=== PATIENT | male | born 1950 | race Caucasian/White ===

== ENCOUNTER 2018-08-14 02:04 | Outpatient (CLI) | payer MEDICARE, BC ==
--- NOTE | 2018-08-14 13:12 | RAD ---
EXAM: Single view of the chest HISTORY: Preoperative radiograph COMPARISON: None FINDINGS: Single view of the chest shows a normal sized cardiomediastinal silhouette. There is no wally dence of consolidation, mass, or pleural effusion. The bones are unremarkable. IMPRESSION: No evidence of acute cardiopulmonary disease
[2018-08-14 13:31] LABS: #Eosinphils 0.1 thou/uL (0.0-0.7); #Lymphocytes 2.7 thou/uL (1.20-3.40); #Monocytes 0.5 thou/uL (0.11-0.59); #Neutrophils 2.6 thou/uL (1.40-6.50); %Basophils 0.7 % (0.0-1.0); %Eosinophils 1.7 % (0.0-10.0); %Lymphocytes 45.6 % (21.0-51.0); %Monocytes 8.2 % (0.0-10.0); %Neutrophils 43.8 % (42.0-75.0); Mean Corpuscular HGB CONC 33.9 g/dL (32.0-36.0); Mean Corpuscular Volume 94.5 fL (78.0-98.0); Platelet Count 216 thou/uL (130-400); Red Blood Cell (RBC) Count 4.37 mill/uL (4.70-6.10)
[2018-08-14 13:51] LABS: ALT (SGPT) 27 U/L (8-55); AST (SGOT) 19 U/L (5-34); Albumin 4.5 g/dL (3.4-4.8); Alkaline Phosphatase 62 U/L (40-150); Anion Gap 12 mmol/L (10-20); BUN (Urea Nitrogen) 15 mg/dL (8.4-25.7); Bilirubin, Total 0.7 mg/dL (0.2-1.2); Calc. Creatinine Clearance 0 mL/min (70-130); Calcium 9.8 mg/dL (7.8-10.44); Carbon Dioxide 26 mmol/L (23-31); Chloride 105 mmol/L (98-107); Estimated GFR-MDRD 67; Globulin 2.2 g/dL (2.4-3.5); Glucose 106 mg/dL (80-115); Potassium 4.5 mmol/L (3.5-5.1); Protein, Total 6.7 g/dL (5.8-8.1); Sodium 138 mmol/L (136-145)
--- NOTE | 2018-08-14 17:37 | EKG ---
Test Reason : Blood Pressure : / mmHG Vent. Rate : 054 BPM Atrial Rate : 054 BPM P-R Int : 148 ms QRS Dur : 090 ms QT Int : 440 ms P-R-T Axes : 047 023 015 degrees QTc Int : 417 ms Sinus bradycardia Otherwise normal ECG No previous ECGs available Confirmed by MARSHA ALCANTARA, DR. Scanlon ([id number]) on 08/14/2018 5:37:22 PM Referred By: ROSSANA Confirmed By:DR. Ghislaine LARSON MD
== END 2018-08-14 02:05 | disposition home or self-care (01) ==
LOC: LABBT 02:04
PROVIDERS: ATTEND Internal Medicine Cardiovascular Disease
DX: Z01.818 Encounter for other preprocedural examination (principal); R94.39 Abnormal result of other cardiovascular function study
CPT/HCPCS: 71045; 80053; 85025; 93005; 93010

== ENCOUNTER 2018-08-21 05:58 | Day surgery (SDC) | payer MEDICARE, BC ==
[2018-08-14 12:16] VITALS: BMI 28.1
[2018-08-21] MEDS ORDERED: Heparin 10,000 UNITS/1 ML VIAL ONE (06:25)
[2018-08-21] MEDS ORDERED: Lidocaine 1% (PF) 30 ML VIAL ONE (06:33)
[2018-08-21 06:47] LABS: Cardiac Risk 4.3 (Less than 4.5)
[2018-08-21] MEDS ORDERED: Fentanyl 100 MCG/2 ML VIAL ONE (07:01)
[2018-08-21] MEDS ORDERED: Midazolam HCl 2 mg/2 ml Vial ONE (07:01)
[2018-08-21] MEDS ORDERED: Protamine Sulfate 50 MG/5 ML VIAL ONE (07:22)
[2018-08-21] MEDS ORDERED: Iopamidol 370 76% 100 ML VIAL ONE (10:28)
[2018-08-21] MEDS ORDERED: Acetaminophen/Codeine 30-300mg Tablet ONE ×2 (11:22→12:13)
== END 2018-08-21 16:05 | disposition home or self-care (01) ==
LOC: CCL 05:58
PROVIDERS: ATTEND Internal Medicine Cardiovascular Disease
PROC: 4A023N7 Measurement of Cardiac Sampling and Pressure, Left Heart, Percutaneous Approach (ICD-10-PCS; principal; 2018-08-21)
PROC: B2001ZZ Plain Radiography of Single Coronary Artery using Low Osmolar Contrast (ICD-10-PCS; 2018-08-21)
DX: I25.84 Coronary atherosclerosis due to calcified coronary lesion (principal); E78.00 Pure hypercholesterolemia, unspecified; Z79.82 Long term (current) use of aspirin; Z79.899 Other long term (current) drug therapy
CPT/HCPCS: 36415; 80061; 85347; 93458; 99152; C1769; J1644; J2001; J2250; J2720; J3010; Q9967

== ENCOUNTER 2022-06-29 08:04 | Inpatient (IN) | payer MEDICARE, BC ==
[2022-06-25 15:20] VITALS: BMI 28.1
[2022-06-29] MEDS ORDERED: CEFAZOLIN 2 GM in Sodium Chloride 0.9% 100 ML IVPB SCH (09:15)
[2022-06-29] MEDS ORDERED: ceFAZolin 2 GM/Dextrose 50 ML 2 GM in Premix Bag 1 BAG IVPB SCH (09:15)
[2022-06-29] MEDS ORDERED: Ondansetron PF 4 MG/2 ML Vial ONE (10:14)
[2022-06-29] MEDS ORDERED: Lidocaine 1% PF 5 ML VIAL ONE (10:14)
[2022-06-29] MEDS ORDERED: PROPOFOL 200 MG/20 ML VIAL ONE (10:14)
[2022-06-29] MEDS ORDERED: Dexamethasone 20 MG/5 ML VIAL ONE (10:14)
[2022-06-29] MEDS ORDERED: ePHEDrine Sulfate 50 MG/10 ML VIAL ONE (10:14)
[2022-06-29] MEDS ORDERED: Sodium Chloride 0.9% 100 ML ONE (10:17)
[2022-06-29] MEDS ORDERED: CEFAZOLIN 2 GM VIAL ONE (10:17)
[2022-06-29] MEDS ORDERED: fentaNYL 50 mcg/mL 1 mL Vial ONE ×2 (10:21→14:33)
[2022-06-29] MEDS ORDERED: Hyoscyamine SL 0.125 MG TAB ONE (12:29)
[2022-06-29] MEDS: Hyoscyamine SL 0.125 MG TAB SL PRN ×2 (12:32→18:40)
[2022-06-29] MEDS ORDERED: Acetaminophen 500 MG TAB ONE (15:33)
[2022-06-29] MEDS: Acetaminophen 500 MG TAB PO PRN ×3 (15:35→23:04)
[2022-06-29] MEDS ORDERED: D5 1/2 NS w/20 mEq KCL 1,000 ML ONE (15:56)
[2022-06-29] MEDS: CEFAZOLIN 1 GM in Sodium Chloride 0.9% 100 ML IVPB SCH (18:33)
[2022-06-29] MEDS: CO Q-10 CAPSULE 100 MG PO SCH (20:08)
[2022-06-29] MEDS: Docusate 100 MG CAP PO SCH (20:09)
[2022-06-29] MEDS ORDERED: Polyethylene Glycol 3350 17 GM Packet PO PRN (20:09)
[2022-06-29] MEDS ORDERED: Ondansetron PF 4 MG/2 ML Vial IVP PRN (20:10)
[2022-06-29] MEDS ORDERED: Ondansetron ODT 4 MG TAB PO PRN (20:10)
[2022-06-29] MEDS: D5 1/2 NS w/20 mEq KCL 1,000 ML IV SCH ×2 (20:54→23:09)
[2022-06-29] MEDS ORDERED: Rosuvastatin 20 MG TAB PO SCH (21:00)
[2022-06-29] MEDS ORDERED: traZODone HCl 50 MG TAB PO PRN (22:56)
[2022-06-29] MEDS: traMADol HCl 50 MG TAB PO PRN (23:04)
[2022-06-30] MEDS: CEFAZOLIN 1 GM in Sodium Chloride 0.9% 100 ML IVPB SCH ×2 (01:01→09:02)
[2022-06-30] MEDS: Hyoscyamine SL 0.125 MG TAB SL PRN (01:01)
[2022-06-30] MEDS: Acetaminophen 500 MG TAB PO PRN ×3 (03:04→14:48)
[2022-06-30 05:54] LABS: #Lymphocytes 1.9 thou/uL (1.20-3.40); #Monocytes 0.8 thou/uL (0.11-0.59); #Neutrophils 7.3 thou/uL (1.40-6.50); %Basophils 0.2 % (0.0-1.0); %Eosinophils 0.1 % (0.0-10.0); %Monocytes 7.7 % (0.0-10.0); %Neutrophils 73.1 % (42.0-75.0); Hemoglobin 11.7 g/dL (14.0-18.0); Mean Corpuscular HGB CONC 32.7 g/dL (32.0-36.0); Mean Corpuscular Hemoglobin 31.2 pg (27.0-31.0); Mean Corpuscular Volume 95.5 fl (78.0-98.0); Mean Platelet Volume 8.7 fL (7.4-10.4); Platelet Count 171 10x3/uL (130-400); RBC Distribution Width 12.3 % (11.5-14.5); Red Blood Cell (RBC) Count 3.74 mill/uL (4.70-6.10)
[2022-06-30] MEDS: traMADol HCl 50 MG TAB PO PRN (05:56)
[2022-06-30 06:18] LABS: Anion Gap 11 mmol/L (10-20); BUN (Urea Nitrogen) 10 mg/dL (8.4-25.7); Calc. Creatinine Clearance 90 mL/min (70-130); Calcium 8.2 mg/dL (7.8-10.44); Carbon Dioxide 23 mmol/L (23-31); Chloride 108 mmol/L (98-107); Estimated GFR 92; Glucose 141 mg/dL (83-110); Potassium 4.1 mmol/L (3.5-5.1); Sodium 138 mmol/L (136-145)
[2022-06-30] MEDS ORDERED: Cholecalciferol 1,000 UNITS (25 MCG) TAB PO SCH (09:00)
[2022-06-30] MEDS ORDERED: Fish Oil 1,000 MG CAP PO SCH (09:00)
[2022-06-30] MEDS ORDERED: Ezetimibe 10 MG TAB PO SCH (09:00)
[2022-06-30] MEDS ORDERED: Furosemide 20 MG TAB PO SCH (09:00)
[2022-06-30] MEDS: Docusate 100 MG CAP PO SCH (09:02)
[2022-06-30] MEDS: CO Q-10 CAPSULE 100 MG PO SCH (09:02)
[2022-06-30 15:23] VITALS: BP 118/72; TEMP 98
== END 2022-06-30 15:30 | disposition home or self-care (01) | DRG 714 ==
LOC: SDC 08:04 → SJJU 12:05
PROVIDERS: ADMIT Urology; ATTEND Urology
PROC: 0VB08ZZ Excision of Prostate, Via Natural or Artificial Opening Endoscopic (ICD-10-PCS; principal; 2022-06-29)
PROC: 3E1K78Z Irrigation of Genitourinary Tract using Irrigating Substance, Via Natural or Artificial Opening (ICD-10-PCS; 2022-06-29)
DX: N40.1 Benign prostatic hyperplasia with lower urinary tract symptoms (principal); R39.14 Feeling of incomplete bladder emptying; K59.00 Constipation, unspecified; Z85.47 Personal history of malignant neoplasm of testis; Z90.79 Acquired absence of other genital organ(s); Z79.82 Long term (current) use of aspirin; Z79.899 Other long term (current) drug therapy
CPT/HCPCS: 36415; 80048; 85025; 88305; J0690; J1100; J2405; J2704; J3010; J3480; J3490